=== PATIENT | male | born 1965 | race Caucasian/White ===

== ENCOUNTER → 2016-10-18 | Outpatient (REF) | payer OTHER ==
[2016-10-18 12:11] LABS: BASO % 0.3 % (0.0-1.0); EOS # 0.1 K/mm3 (0.0-0.50); EOS % 1.9 % (0.0-3.0); LARGE UNSTAINED CELL # 0.1 K/mm3 (0.0-0.4); LARGE UNSTAINED CELL % 1.9 % (0.0-4.0); LYMPH # 1.3 K/mm3 (1.5-4.5); LYMPH % 36.2 % (24.0-44.0); MEAN CORPUSCULAR HEMOGLOBIN 28.5 pg (27.0-33.0); MEAN CORPUSCULAR HGB CONC 33.3 g/dl (32.0-36.5); MEAN CORPUSCULAR VOLUME 85.8 fl (80.0-96.0); MONO # 0.2 K/mm3 (0.0-0.8); MONO % 5.6 % (0.0-5.0); NEUTROPHILS # 1.9 K/mm3 (1.8-7.7); PLATELET COUNT, AUTOMATED 192 k/mm3 (150-450); RED CELL DISTRIBUTION WIDTH 12.9 % (11.5-14.5); WHITE BLOOD COUNT 3.5 K/mm3 (4.0-10.0)
[2016-10-18 13:09] LABS: ALBUMIN/GLOBULIN RATIO 1.08 (1.00-1.93); ALKALINE PHOSPHATASE 50 U/L (45-117); ALT/SGPT 26 U/L (12-78); ANION GAP 7 MEQ/L (8-16); AST/SGOT 16 U/L (15-37); BILIRUBIN,TOTAL 0.8 MG/DL (0.2-1.0); BLOOD UREA NITROGEN 17 MG/DL (7-18); CALCIUM LEVEL 8.6 MG/DL (8.5-10.1); CARBON DIOXIDE LEVEL 27 MEQ/L (21-32); CHLORIDE LEVEL 107 MEQ/L (98-107); CHOLESTEROL LEVEL 164 MG/DL (<200); CREATININE FOR GFR 0.91 MG/DL (0.70-1.30); FREE T4 0.86 NG/DL (0.76-1.46); GLOMERULAR FILTRATION RATE > 60.0 (>56); GLUCOSE, FASTING 83 MG/DL (70-105); POTASSIUM SERUM 4.1 MEQ/L (3.5-5.1); SODIUM LEVEL 141 MEQ/L (136-145); TOTAL PROTEIN 7.7 GM/DL (6.4-8.2); TRIGLYCERIDES LEVEL 100 MG/DL (<150)
== END ==
LOC: M LABDRAW1 11:25
PROVIDERS: ATTEND Family Medicine
DX: Z13.29 Encounter for screening for other suspected endocrine disorder (principal); Z13.220 Encounter for screening for lipoid disorders; Z13.0 Encounter for screening for diseases of the blood and blood-forming organs and certain disorders involving the immune mechanism; Z12.5 Encounter for screening for malignant neoplasm of prostate; E55.9 Vitamin D deficiency, unspecified
CPT/HCPCS: 36415; 80053; 80061; 82306; 84439; 84443; 85025; G0103

== ENCOUNTER → 2016-11-01 | Outpatient (REF) | payer OTHER ==
[2016-11-01 12:32] LABS: VITAMIN B12 LEVEL 1638 PG/ML
[2016-11-01 12:33] LABS: FOLATE > 24.0 NG/ML
[2016-11-01 12:56] LABS: FERRITIN 305 NG/ML (26-388); PERCENT SATURATION 26.3 % (19.7-37.4); TOTAL IRON BINDING CAPACITY 259 UG/DL (250-450)
== END ==
LOC: M LABDRAW1 11:37
PROVIDERS: ATTEND Family Medicine
DX: D64.9 Anemia, unspecified (principal)

== ENCOUNTER → 2018-12-16 | Outpatient (REF) | payer OTHER ==
[2018-12-16 12:17] LABS: ALT/SGPT 29 U/L (12-78); BILIRUBIN,TOTAL 0.6 MG/DL (0.2-1.0); BLOOD UREA NITROGEN 19 MG/DL (7-18); CALCIUM LEVEL 8.8 MG/DL (8.5-10.1); CARBON DIOXIDE LEVEL 31 MEQ/L (21-32); CHLORIDE LEVEL 106 MEQ/L (98-107); CHOLESTEROL LEVEL 205 MG/DL (<200); CHOLESTEROL RISK RATIO 4.183 (<5); CREATININE FOR GFR 0.99 MG/DL (0.70-1.30); GLOMERULAR FILTRATION RATE > 60.0 (>56); GLUCOSE, FASTING 100 MG/DL (70-100); HDL CHOLESTEROL 49 MG/DL (>40); LDL CHOLESTEROL 135 MG/DL (<100); NON-HDL-C 156 MG/DL; POTASSIUM SERUM 4.1 MEQ/L (3.5-5.1); SODIUM LEVEL 141 MEQ/L (136-145); TOTAL 25(OH) VITAMIN D 38.9 NG/ML (30.0-100.0); TOTAL PROTEIN 9.1 GM/DL (6.4-8.2); TRIGLYCERIDES LEVEL 107 MG/DL (<150)
[2018-12-16 12:46] LABS: HEMOGLOBIN A1c 5.7 %
== END ==
LOC: M LABDRAW1 08:44
PROVIDERS: ATTEND Physician Assistant
DX: Z13.1 Encounter for screening for diabetes mellitus (principal); Z00.00 Encounter for general adult medical examination without abnormal findings; Z13.220 Encounter for screening for lipoid disorders; E55.9 Vitamin D deficiency, unspecified; Z12.5 Encounter for screening for malignant neoplasm of prostate

== ENCOUNTER → 2020-03-24 | Outpatient (CLI) | payer OTHER ==
[2020-03-24 13:50] LABS: BASO % 0.5 % (0.0-1.0); EOS # 0.2 10^3/uL (0.0-0.5); EOS % 3.7 % (0.0-3.0); HEMATOCRIT 40.4 % (42.0-52.0); HEMOGLOBIN 12.9 g/dl (13.5-17.5); LYMPH # 1.9 10^3/uL (1.5-5.0); LYMPH % 46.3 % (24.0-44.0); MEAN CORPUSCULAR HEMOGLOBIN 28.5 pg (27.0-33.0); MEAN CORPUSCULAR HGB CONC 31.9 g/dl (32.0-36.5); MEAN CORPUSCULAR VOLUME 89.2 fl (80.0-96.0); MONO # 0.3 10^3/uL (0.0-0.8); MONO % 7.9 % (0.0-5.0); NEUTROPHILS # 1.7 10^3/uL (1.5-8.5); NEUTROPHILS % 41.1 % (36.0-66.0); PLATELET COUNT, AUTOMATED 209 10^3/uL (150-450); RED BLOOD COUNT 4.53 10^6/uL (4.30-6.10)
[2020-03-24 15:24] LABS: ALT/SGPT 25 U/L (12-78); BILIRUBIN,TOTAL 0.7 MG/DL (0.2-1.0); BLOOD UREA NITROGEN 18 MG/DL (7-18); CALCIUM LEVEL 8.8 MG/DL (8.5-10.1); CARBON DIOXIDE LEVEL 29 MEQ/L (21-32); CHLORIDE LEVEL 106 MEQ/L (98-107); CHOLESTEROL LEVEL 204 MG/DL (<200); CHOLESTEROL RISK RATIO 3.517 (<5); CREATININE FOR GFR 0.87 MG/DL (0.70-1.30); FREE T4 0.77 NG/DL (0.76-1.46); GLOMERULAR FILTRATION RATE > 60.0 (>56); GLUCOSE, FASTING 97 MG/DL (70-100); HDL CHOLESTEROL 58 MG/DL (>40); LDL CHOLESTEROL 130 MG/DL (<100); NON-HDL-C 146 MG/DL; POTASSIUM SERUM 4.7 MEQ/L (3.5-5.1); SODIUM LEVEL 137 MEQ/L (136-145); TOTAL 25(OH) VITAMIN D 31.1 NG/ML (30.0-100.0); TRIGLYCERIDES LEVEL 79 MG/DL (<150)
== END ==
LOC: M PLALAB 08:35
PROVIDERS: ATTEND Family Medicine
DX: E55.9 Vitamin D deficiency, unspecified (principal); Z13.29 Encounter for screening for other suspected endocrine disorder; Z13.220 Encounter for screening for lipoid disorders; Z13.0 Encounter for screening for diseases of the blood and blood-forming organs and certain disorders involving the immune mechanism
CPT/HCPCS: 36415; 80053; 80061; 82306; 84439; 84443; 85025; G0103

== ENCOUNTER → 2021-02-22 | Outpatient (CLI) | payer OTHER ==
[2021-02-22 11:46] LABS: BASO % 0.8 % (0.0-1.0); EOS # 0.1 10^3/uL (0.0-0.5); EOS % 2.8 % (0.0-3.0); HEMATOCRIT 35.8 % (42.0-52.0); HEMOGLOBIN 11.5 g/dl (13.5-17.5); LYMPH # 1.7 10^3/uL (1.5-5.0); LYMPH % 42.2 % (24.0-44.0); MEAN CORPUSCULAR HEMOGLOBIN 28.4 pg (27.0-33.0); MEAN CORPUSCULAR HGB CONC 32.1 g/dl (32.0-36.5); MEAN CORPUSCULAR VOLUME 88.4 fl (80.0-96.0); MONO # 0.3 10^3/uL (0.0-0.8); MONO % 6.6 % (2.0-8.0); NEUTROPHILS # 1.9 10^3/uL (1.5-8.5); NEUTROPHILS % 47.3 % (36.0-66.0); PLATELET COUNT, AUTOMATED 256 10^3/uL (150-450); RED BLOOD COUNT 4.05 10^6/uL (4.30-6.10); WHITE BLOOD COUNT 3.9 10^3/uL (4.0-10.0)
[2021-02-22 12:07] LABS: ALBUMIN 3.8 GM/DL (3.2-5.2); ALT/SGPT 28 U/L (12-78); BILIRUBIN,TOTAL 0.4 MG/DL (0.2-1.0); BLOOD UREA NITROGEN 18 MG/DL (7-18); CALCIUM LEVEL 8.7 MG/DL (8.5-10.1); CARBON DIOXIDE LEVEL 31 MEQ/L (21-32); CHLORIDE LEVEL 107 MEQ/L (98-107); CHOLESTEROL LEVEL 189 MG/DL (<200); CHOLESTEROL RISK RATIO 4.021 (<5); CREATININE FOR GFR 0.83 MG/DL (0.70-1.30); FREE T4 0.69 NG/DL (0.76-1.46); GLOMERULAR FILTRATION RATE > 60.0 (>56); GLUCOSE, FASTING 94 MG/DL (70-100); HDL CHOLESTEROL 47 MG/DL (>40); LDL CHOLESTEROL 115 MG/DL (<100); NON-HDL-C 142 MG/DL; POTASSIUM SERUM 4.1 MEQ/L (3.5-5.1); SODIUM LEVEL 140 MEQ/L (136-145); TOTAL PROTEIN 8.9 GM/DL (6.4-8.2); TRIGLYCERIDES LEVEL 137 MG/DL (<150)
[2021-02-22 12:11] LABS: TOTAL 25(OH) VITAMIN D 38.8 NG/ML (30.0-100.0)
[2021-02-22 15:05] LABS: FERRITIN 277 NG/ML (26-388); IRON (FE) 59 UG/DL (65-175); PERCENT SATURATION 21.5 % (19.7-50.0); TOTAL IRON BINDING CAPACITY 275 UG/DL (250-450)
[2021-02-22 15:10] LABS: VITAMIN B12 LEVEL 653 PG/ML (247-911)
== END ==
LOC: M PLALAB 08:20
PROVIDERS: ATTEND Family Medicine
DX: D64.9 Anemia, unspecified (principal); E55.9 Vitamin D deficiency, unspecified
CPT/HCPCS: 36415; 80053; 80061; 82306; 82607; 82728; 83550; 84439; 84443; 85025; 85046; G0103

== ENCOUNTER → 2021-04-10 | Outpatient (REF) | payer OTHER | LOC: M LAB REF 17:14 | PROVIDERS: ATTEND Family Medicine | DX: J06.9 Acute upper respiratory infection, unspecified (principal); Z20.822 Contact with and (suspected) exposure to COVID-19 ==

== ENCOUNTER → 2021-09-27 | Outpatient (CLI) | payer BC | LOC: M PLAIMG 07:16 → M PLARAD 07:16 | PROVIDERS: ATTEND Nurse Practitioner Adult Health | DX: M25.531 Pain in right wrist (principal) ==

== ENCOUNTER → 2022-02-27 | Outpatient (CLI) | payer BC ==
[2022-02-27 11:06] LABS: BASO % 0.8 % (0.0-1.0); EOS # 0.1 10^3/uL (0.0-0.5); EOS % 2.5 % (0.0-3.0); HEMATOCRIT 35.5 % (42.0-52.0); HEMOGLOBIN 11.7 g/dl (13.5-17.5); LYMPH # 1.7 10^3/uL (1.5-5.0); LYMPH % 46.4 % (24.0-44.0); MEAN CORPUSCULAR HEMOGLOBIN 29.8 pg (27.0-33.0); MEAN CORPUSCULAR VOLUME 90.3 fl (80.0-96.0); MONO # 0.2 10^3/uL (0.0-0.8); MONO % 5.2 % (2.0-8.0); NEUTROPHILS # 1.6 10^3/uL (1.5-8.5); NEUTROPHILS % 44.8 % (36.0-66.0); PLATELET COUNT, AUTOMATED 216 10^3/uL (150-450); RED BLOOD COUNT 3.93 10^6/uL (4.30-6.10); WHITE BLOOD COUNT 3.7 10^3/uL (4.0-10.0)
[2022-02-27 11:50] LABS: ALBUMIN 3.8 GM/DL (3.2-5.2); ALT/SGPT 24 U/L (12-78); BILIRUBIN,TOTAL 0.7 MG/DL (0.2-1.0); BLOOD UREA NITROGEN 21 MG/DL (7-18); CARBON DIOXIDE LEVEL 29 MEQ/L (21-32); CHLORIDE LEVEL 105 MEQ/L (98-107); CHOLESTEROL LEVEL 182 MG/DL (<200); FREE T4 0.73 NG/DL (0.76-1.46); GLOMERULAR FILTRATION RATE > 60.0 (>56); GLUCOSE, FASTING 92 MG/DL (70-100); HDL CHOLESTEROL 54 MG/DL (>40); LDL CHOLESTEROL 101 MG/DL (<100); NON-HDL-C 128 MG/DL; POTASSIUM SERUM 4.1 MEQ/L (3.5-5.1); SODIUM LEVEL 134 MEQ/L (136-145); TOTAL PROTEIN 9.3 GM/DL (6.4-8.2); TRIGLYCERIDES LEVEL 134 MG/DL (<150)
[2022-02-27 12:16] LABS: TOTAL 25(OH) VITAMIN D 54.8 NG/ML (30.0-100.0)
[2022-02-27 13:51] LABS: FERRITIN 282 NG/ML (26-388); IRON (FE) 58 UG/DL (65-175); PERCENT SATURATION 22.7 % (19.7-50.0); TOTAL IRON BINDING CAPACITY 255 UG/DL (250-450)
[2022-02-27 14:18] LABS: VITAMIN B12 LEVEL 443 PG/ML (247-911)
== END ==
LOC: M PLALAB 07:38
PROVIDERS: ATTEND Family Medicine
DX: E55.9 Vitamin D deficiency, unspecified (principal); Z12.5 Encounter for screening for malignant neoplasm of prostate; Z13.220 Encounter for screening for lipoid disorders; Z13.29 Encounter for screening for other suspected endocrine disorder; Z13.0 Encounter for screening for diseases of the blood and blood-forming organs and certain disorders involving the immune mechanism
CPT/HCPCS: 36415; 80053; 80061; 82306; 82607; 82728; 83550; 84439; 84443; 85025; G0103

== ENCOUNTER → 2022-03-20 | Outpatient (CLI) | payer BC ==
[2022-03-20 10:49] LABS: EOS # 0.1 10^3/uL (0.0-0.5); EOS % 3.6 % (0.0-3.0); HEMATOCRIT 38.9 % (42.0-52.0); HEMOGLOBIN 12.6 g/dl (13.5-17.5); LYMPH # 1.7 10^3/uL (1.5-5.0); LYMPH % 54.4 % (24.0-44.0); MEAN CORPUSCULAR HEMOGLOBIN 28.9 pg (27.0-33.0); MEAN CORPUSCULAR HGB CONC 32.4 g/dl (32.0-36.5); MEAN CORPUSCULAR VOLUME 89.2 fl (80.0-96.0); MONO # 0.2 10^3/uL (0.0-0.8); MONO % 6.5 % (2.0-8.0); NEUTROPHILS # 1.1 10^3/uL (1.5-8.5); NEUTROPHILS % 34.2 % (36.0-66.0); PLATELET COUNT, AUTOMATED 220 10^3/uL (150-450); RED BLOOD COUNT 4.36 10^6/uL (4.30-6.10); WHITE BLOOD COUNT 3.1 10^3/uL (4.0-10.0)
[2022-03-20 11:38] LABS: ALBUMIN 3.8 GM/DL (3.2-5.2); ALT/SGPT 24 U/L (12-78); BILIRUBIN,TOTAL 0.7 MG/DL (0.2-1.0); BLOOD UREA NITROGEN 12 MG/DL (7-18); CALCIUM LEVEL 9.1 MG/DL (8.5-10.1); CARBON DIOXIDE LEVEL 31 MEQ/L (21-32); CHLORIDE LEVEL 104 MEQ/L (98-107); CREATININE FOR GFR 0.97 MG/DL (0.70-1.30); GLOMERULAR FILTRATION RATE > 60.0 (>56); GLUCOSE, FASTING 97 MG/DL (70-100); POTASSIUM SERUM 4.5 MEQ/L (3.5-5.1); SODIUM LEVEL 135 MEQ/L (136-145); TOTAL PROTEIN 9.3 GM/DL (6.4-8.2)
== END ==
LOC: M PLALAB 08:36
PROVIDERS: ATTEND Family Medicine
DX: D61.818 Other pancytopenia (principal)

== ENCOUNTER → 2022-03-25 | Outpatient (CLI) | payer BC ==
[2022-03-25 12:03] LABS: HEPATITIS B SURFACE ANTIBODY NEGATIVE (POSITIVE)
[2022-03-25 12:13] LABS: HEPATITIS B SURFACE ANTIGEN NEGATIVE (NEGATIVE)
[2022-03-25 12:40] LABS: HEPATITIS C VIRUS ABY INDEX < 0.0 INDEX (<0.8)
[2022-03-25 12:42] LABS: HEPATITIS B CORE ANTIBODY IGM NEGATIVE (NEGATIVE)
[2022-03-26 14:12] LABS: ANGIOTENSIN 1 CONVERTING ENZYM 11 U/L (14-82)
[2022-03-26 15:44] LABS: ALBUMIN 4.63 GM/DL (3.29-5.55); ALBUMIN % 51.4 % (55.8-66.1); ALPHA-1-GLOBULIN % 2.7 % (2.9-4.9); ALPHA-1-GLOBULINS 0.24 GM/DL (0.17-0.41); ALPHA-2-GLOBULINS 0.63 GM/DL (0.42-0.99); BETA-1-GLOBULINS 0.32 GM/DL (0.28-0.60); BETA-1-GLOBULINS % 3.6 % (4.7-7.2); BETA-2-GLOBULINS 0.14 GM/DL (0.19-0.55); BETA-2-GLOBULINS % 1.6 % (3.2-6.5); GAMMA GLOBULIN % 33.7 % (11.1-18.8); GAMMA GLOBULINS 3.03 GM/DL (0.65-1.58)
== END ==
LOC: M PLALAB 03-22 11:57
PROVIDERS: ATTEND Family Medicine
DX: E88.09 Other disorders of plasma-protein metabolism, not elsewhere classified (principal)

== ENCOUNTER → 2022-04-08 | Outpatient (REF) | payer BC | LOC: M LAB REF 11:47 | PROVIDERS: ATTEND Specialist | DX: D47.2 Monoclonal gammopathy (principal) ==

== ENCOUNTER → 2022-04-29 | Outpatient (CLI) | payer BC ==
[~2022-04-29] MED LIST: LIDOCAINE 1% MDV 20ML VIAL As Ordered ONE
[2022-04-29 09:21] LABS: BASO % 0.4 % (0.0-1.0); EOS # 0.1 10^3/uL (0.0-0.5); EOS % 2.7 % (0.0-3.0); HEMATOCRIT 36.5 % (42.0-52.0); LYMPH # 2.3 10^3/uL (1.5-5.0); LYMPH % 50.1 % (24.0-44.0); MEAN CORPUSCULAR HEMOGLOBIN 29.1 pg (27.0-33.0); MEAN CORPUSCULAR HGB CONC 32.9 g/dl (32.0-36.5); MEAN CORPUSCULAR VOLUME 88.4 fl (80.0-96.0); MONO # 0.3 10^3/uL (0.0-0.8); MONO % 6.2 % (2.0-8.0); NEUTROPHILS # 1.8 10^3/uL (1.5-8.5); NEUTROPHILS % 39.9 % (36.0-66.0); PLATELET COUNT, AUTOMATED 205 10^3/uL (150-450); RED BLOOD COUNT 4.13 10^6/uL (4.30-6.10); WHITE BLOOD COUNT 4.5 10^3/uL (4.0-10.0)
[2022-04-29 09:35] VITALS: BP 171/97
== END ==
LOC: M IRPRO 08:42
PROVIDERS: ATTEND Specialist
DX: R77.9 Abnormality of plasma protein, unspecified (principal)

== ENCOUNTER → 2022-06-17 | Outpatient (CLI) | payer BC ==
[~2022-06-17] MED LIST changes: +ACYC1TAB PO; +DEXA4TA PO; +LENA25CA PO; +LEVO1TAB39 PO; -LIDOCAINE 1% MDV 20ML VIAL As Ordered ONE; +ONDA8TAB8 PO; +PROC10TA5 PO; +REVL25CA PO; +VITA1CAP25 PO; +VITMTA PO
== END ==
LOC: M PLARAD 14:01
PROVIDERS: ATTEND Specialist
DX: C90.00 Multiple myeloma not having achieved remission (principal)
CPT/HCPCS: 78815; A9552

== ENCOUNTER → 2023-02-11 | Outpatient (REF) | payer BC ==
[~2023-02-11] MED LIST changes: +ASPI-161 PO; +BACTDSTA PO; +PENI500T PO; +REVL20CA PO; +ZINC220CA PO
[2023-02-11 16:13] LABS: IMMUNOGLOBULIN G 2148 MG/DL (650-1600)
[2023-02-11 16:25] LABS: IMMUNOGLOBULIN A < 33.0 MG/DL (40-350); IMMUNOGLOBULIN M < 21.0 MG/DL (50-300)
[2023-02-13 18:07] LABS: FREE KAPPA LIGHT CHAINS SERUM 108.1 mg/L (3.3-19.4); FREE LAMBDA LIGHT CHAINS SERUM 1.9 mg/L (5.7-26.3); IMMUNOTYPING SERUM IGA SO 8 mg/dL (90-386); IMMUNOTYPING SERUM IGM SO 12 mg/dL (20-172); KAPPA/LAMBDA RATIO SERUM 56.89 (0.26-1.65)
== END ==
LOC: M LAB REF 15:00
PROVIDERS: ATTEND Internal Medicine Hematology & Oncology
DX: C90.00 Multiple myeloma not having achieved remission (principal)

== ENCOUNTER → 2023-05-25 | Outpatient (REF) | payer BC ==
[~2023-05-25] MED LIST changes: +ASPI81CH33 PO
[2023-05-26 12:09] LABS: TOTAL VOLUME, URINE 2600 ML
[2023-05-26 12:52] LABS: TOTAL PROTEIN 24 HOUR URINE 205.4 MG/24HR (50-80); URINE TOTAL PROTEIN 7.9 MG/DL (0-14)
== END ==
LOC: M LAB REF 11:37
PROVIDERS: ATTEND Specialist
DX: G47.9 Sleep disorder, unspecified (principal)

== ENCOUNTER → 2023-10-16 | Outpatient (REF) | payer BC ==
[~2023-10-16] MED LIST changes: -ASPI-161 PO; +ASPI-615 PO; +CRES1CAP2 PO; +FAMO20TA PO; +FILG30VL SC; +MEPR750S FT
[2023-10-16 09:42] LABS: CHOLESTEROL RISK RATIO 2.98 (<5); HDL CHOLESTEROL 63.4 MG/DL (>40); LDL CHOLESTEROL 110.8 MG/DL (<100); NON-HDL-C 125.6 MG/DL
[2023-10-16 09:44] LABS: FREE T4 0.82 NG/DL (0.89-1.76); THYROID STIMULATING HORMONE 2.599 uIU/ML (0.55-4.78)
[2023-10-16 09:45] LABS: TOTAL 25(OH) VITAMIN D 35.8 NG/ML (20.0-100.0)
== END ==
LOC: M LAB REF 08:50
PROVIDERS: ATTEND Family Medicine
DX: E55.9 Vitamin D deficiency, unspecified (principal); Z13.29 Encounter for screening for other suspected endocrine disorder; Z13.220 Encounter for screening for lipoid disorders

== ENCOUNTER → 2025-04-07 | Outpatient (REF) | payer BC ==
[~2025-04-07] MED LIST changes: +ACYC-438 PO; -ACYC1TAB PO; +AUGM500T34 PO; +LOMO2.5T PO; +ONDA-284 PO; -ONDA8TAB8 PO; +OSEL75CA PO; +REVL2.5C PO; +REVL5CAP2 PO
[2025-04-07 09:42] LABS: BASO # 0.0 10^3/uL (0.0-0.2); BASO % 0.9 % (0.0-1.0); EOS # 0.1 10^3/uL (0.0-0.5); EOS % 2.8 % (0.0-3.0); LYMPH # 1.0 10^3/uL (1.5-5.0); LYMPH % 44.7 % (24.0-44.0); MONO # 0.4 10^3/uL (0.0-0.8); MONO % 16.6 % (2.0-8.0); NEUTROPHILS % 35.0 % (36.0-66.0); PLATELET COUNT, AUTOMATED 125 10^3/uL (150-450)
[2025-04-07 10:03] LABS: NEUTROPHILS # 0.8 10^3/uL (1.5-8.5)
[2025-04-07 10:21] LABS: TOTAL 25(OH) VITAMIN D 63.9 NG/ML (20.0-100.0)
[2025-04-07 10:22] LABS: FREE T4 0.97 NG/DL (0.89-1.76)
[2025-04-07 11:19] LABS: ALT/SGPT 23 U/L (7.0-40); AST/SGOT 22 U/L (<34); CALCIUM LEVEL 8.7 MG/DL (8.5-10.1); CARBON DIOXIDE LEVEL 27 MMOL/L (20-31); CHLORIDE LEVEL 108 MMOL/L (98-107); CHOLESTEROL LEVEL 190 MG/DL (<200); CHOLESTEROL RISK RATIO 3.42 (<5); CREATININE FOR GFR 0.89 MG/DL (0.70-1.30); GLOMERULAR FILTRATION RATE > 90.0 (>56); LDL CHOLESTEROL 120.5 MG/DL (<100); NON-HDL-C 134.5 MG/DL; POTASSIUM SERUM 4.4 MMOL/L (3.5-5.1); SODIUM LEVEL 140 MMOL/L (136-145); TRIGLYCERIDES LEVEL 70 MG/DL (<150)
== END ==
LOC: M LAB REF 09:22
PROVIDERS: ATTEND Family Medicine
DX: Z13.29 Encounter for screening for other suspected endocrine disorder (principal); E55.9 Vitamin D deficiency, unspecified; Z13.220 Encounter for screening for lipoid disorders

== ENCOUNTER → 2025-04-07 | Outpatient (REF) | payer BC ==
[2025-04-07 09:42] LABS: BASO # 0.0 10^3/uL (0.0-0.2); BASO % 1.3 % (0.0-1.0); EOS # 0.1 10^3/uL (0.0-0.5); EOS % 4.0 % (0.0-3.0); LYMPH # 1.0 10^3/uL (1.5-5.0); LYMPH % 43.8 % (24.0-44.0); MONO # 0.4 10^3/uL (0.0-0.8); MONO % 18.3 % (2.0-8.0); NEUTROPHILS % 32.6 % (36.0-66.0); PLATELET COUNT, AUTOMATED 125 10^3/uL (150-450)
[2025-04-07 09:44] LABS: NEUTROPHILS # 0.7 10^3/uL (1.5-8.5)
== END ==
LOC: M LAB REF 09:24
PROVIDERS: ATTEND Internal Medicine Hematology & Oncology
DX: C90.00 Multiple myeloma not having achieved remission (principal)

== ENCOUNTER → 2025-04-14 | Outpatient (REF) | payer BC ==
[2025-04-14 08:30] LABS: BASO # 0.0 10^3/uL (0.0-0.2); BASO % 1.0 % (0.0-1.0); EOS # 0.3 10^3/uL (0.0-0.5); EOS % 7.1 % (0.0-3.0); LYMPH # 1.1 10^3/uL (1.5-5.0); LYMPH % 27.9 % (24.0-44.0); MONO # 0.3 10^3/uL (0.0-0.8); MONO % 8.4 % (2.0-8.0); NEUTROPHILS # 2.2 10^3/uL (1.5-8.5); NEUTROPHILS % 55.1 % (36.0-66.0); PLATELET COUNT, AUTOMATED 127 10^3/uL (150-450)
== END ==
LOC: M LAB REF 08:14
PROVIDERS: ATTEND Internal Medicine Hematology & Oncology
DX: C90.00 Multiple myeloma not having achieved remission (principal)

== ENCOUNTER → 2025-05-19 | Outpatient (REF) | payer BC | LOC: M LAB REF 08:17 | PROVIDERS: ATTEND Family Medicine | DX: Z12.5 Encounter for screening for malignant neoplasm of prostate (principal) ==